=== PATIENT | female | born 1970 | race African-American/Black ===

== ENCOUNTER 2022-02-02 07:58 | Inpatient (IN) | payer OTHER, MEDICAID ==
[~2022-02-02] VITALS: Ht 175.3 cm; Wt 161.0 kg
[2022-02-02] MEDS ORDERED: ACETAMINOPHEN 325MG TABLET PO ONE (08:30)
[2022-02-02] MEDS ORDERED: NAPR-1176 MT (09:49)
[2022-02-02 14:25] LABS: BASOPHILS % 0.6 % (0.0-2.0); EOSINOPHILS % 0.5 % (0.0-5.0); HEMATOCRIT. 42.6 % (36.0-48.0); HEMOGLOBIN. 14.2 g/dL (12.0-16.0); LYMPHOCYTES % 11.9 % (20.0-50.0); MEAN CORPUSCULAR HEMOGLOBIN 29.8 pg (28.0-32.0); MEAN CORPUSCULAR VOLUME 89.5 fL (81.0-99.0); MEAN PLATELET VOLUME 8.2 fl (7.4-10.4); MONOCYTES % 8.8 % (2.0-8.0); NEUTROPHILS % 78.2 % (40.0-76.0); PLATELET 309 x1000/uL (130-400); RED BLOOD CELL COUNT 4.76 mill/uL (4.2-5.4); RED CELL DISTRIBUTION WIDTH 14.1 % (11.6-14.6)
[2022-02-02 16:00] VITALS: BP 159/85
[2022-02-02 16:03] LABS: CHLORIDE 103 mEq/L (98-107)
[2022-02-02] MEDS ORDERED: DOCUSATE SODIUM 100MG CAPSULE PO PRN (16:30)
[2022-02-02] MEDS ORDERED: NA PHOS,M-B/NA PHOS,DI-BA ENEMA 118ML PR PRN (16:30)
[2022-02-02] MEDS ORDERED: IPRATROPIUM/ALBUTEROL 0.5-3(2.5)MG/3ML NEB NEB PRN (16:30)
[2022-02-02] MEDS ORDERED: GUAIFENESIN 200MG/10ML SUGAR FREE UDC PO PRN (16:30)
[2022-02-02] MEDS ORDERED: ONDANSETRON HCL 4MG/2ML INJ IV PRN (16:30)
[2022-02-02] MEDS ORDERED: MAGNESIUM/ALUMINUM HYDROXIDE/SIMETHICONE 30ML UDC PO PRN (16:30)
[2022-02-02] MEDS ORDERED: ACETAMINOPHEN 325MG TABLET PO PRN ×2 (16:30)
[2022-02-02] MEDS ORDERED: NITROGLYCERIN 0.4MG TABLET SL SL PRN (16:30)
[2022-02-02] MEDS ORDERED: CLONIDINE 0.1MG TABLET PO PRN (16:30)
[2022-02-02] MEDS ORDERED: ZOLPIDEM TARTRATE 5MG TABLET PO PRN (16:30)
[2022-02-02] MEDS ORDERED: KETOROLAC 15MG/ML VIAL IV PRN (16:30)
[2022-02-02 17:47] VITALS: BP 159/85
[2022-02-02 17:57] LABS: ETHANOL BLOOD < 10 mg/dL; HDL CHOLESTEROL 72 mg/dL (40-59); LDL CHOLESTEROL 53 mg/dL (5-100); T4 FREE 0.88 ng/dL (0.76-1.46); TOTAL IRON BINDING CAPACITY 335 ug/dL (250-450)
[2022-02-02 18:05] LABS: *AMPHETAMINES SCREEN URINE NEGATIVE (NEGATIVE); *BARBITURATES SCREEN URINE NEGATIVE (NEGATIVE); *BENZODIAZEPINES SCREEN URINE NEGATIVE (NEGATIVE); *COCAINE SCREEN URINE NEGATIVE (NEGATIVE); CANNABINOID URINE SCREEN NEGATIVE (NEGATIVE); METHADONE URINE SCREEN NEGATIVE (NEGATIVE); OPIATES URINE SCREEN NEGATIVE (NEGATIVE); PHENCYCLIDINE URINE SCREEN NEGATIVE (NEGATIVE)
[2022-02-02 18:14] LABS: VITAMIN B12 SERUM 340 pg/mL (211-911)
[2022-02-02 20:00] VITALS: BP 111/55
[2022-02-02] MEDS: ENOXAPARIN 40MG/0.4ML SYR SUBCUT SCH (21:00)
[2022-02-03] VITALS: BP 142/74
[2022-02-03] MEDS: FAMOTIDINE 20MG TABLET PO SCH ×3 (01:08→20:21)
[2022-02-03 04:00] VITALS: BP 124/63
[2022-02-03 06:53] LABS: BASOPHILS % 0.6 % (0.0-2.0); EOSINOPHILS % 0.5 % (0.0-5.0); HEMATOCRIT. 35.4 % (36.0-48.0); HEMOGLOBIN. 12.1 g/dL (12.0-16.0); MEAN CORPUSCULAR HEMOGLOBIN 30.3 pg (28.0-32.0); MEAN CORPUSCULAR VOLUME 88.4 fL (81.0-99.0); MEAN PLATELET VOLUME 7.8 fl (7.4-10.4); MONOCYTES % 13.9 % (2.0-8.0); PLATELET 285 x1000/uL (130-400); RED CELL DISTRIBUTION WIDTH 14.5 % (11.6-14.6)
[2022-02-03 08:00] VITALS: BP 132/65
[2022-02-03 08:44] LABS: CHLORIDE 107 mEq/L (98-107)
[2022-02-03 08:58] LABS: PHOSPHORUS 3.2 mg/dL (2.5-4.9)
[2022-02-03] MEDS: ENOXAPARIN 40MG/0.4ML SYR SUBCUT SCH ×2 (10:35→20:21)
[2022-02-03 12:00] VITALS: BP 127/61
[2022-02-03 15:56] VITALS: BP 128/71
[2022-02-03 20:00] VITALS: BP 136/94
[2022-02-04] VITALS: BP 123/69
[2022-02-04 04:00] VITALS: BP 139/66
[2022-02-04 08:00] VITALS: BP 137/84
[2022-02-04] MEDS: FAMOTIDINE 20MG TABLET PO SCH ×2 (08:55→21:00)
[2022-02-04] MEDS: ENOXAPARIN 40MG/0.4ML SYR SUBCUT SCH ×2 (08:56→21:00)
[2022-02-04 12:00] VITALS: BP 136/73
[2022-02-04 16:00] VITALS: BP 132/69
[2022-02-04 21:41] VITALS: BP 128/63
[2022-02-05] VITALS (7 sets, daily range): BP systolic 133–157; BP diastolic 57–95
[2022-02-05] MEDS: FAMOTIDINE 20MG TABLET PO SCH (10:05)
[2022-02-05] MEDS: ENOXAPARIN 40MG/0.4ML SYR SUBCUT SCH (10:05)
== END 2022-02-05 21:25 | DRG 605 ==
LOC: ER 08:17 → EDBEDREQ 15:21 → EDBEDREQTM 15:21 → ENRESERV 16:11 → 6EST 17:43
PROVIDERS: ADMIT Internal Medicine; ATTEND Internal Medicine
DX: S80.02XA Contusion of left knee, initial encounter (principal); Z68.43 Body mass index [BMI] 50.0-59.9, adult; E66.01 Morbid (severe) obesity due to excess calories; Z20.822 Contact with and (suspected) exposure to COVID-19; S80.01XA Contusion of right knee, initial encounter; X58.XXXA Exposure to other specified factors, initial encounter; Y93.89 Activity, other specified; Y92.89 Other specified places as the place of occurrence of the external cause; Y99.8 Other external cause status
CPT/HCPCS: 36415; 72170; 73562; 73700; 80048; 80053; 80061; 80305; 80320; 82607; 82746; 83036; 83540; 83550; 83735; 84100; 84439; 84443; 85025; 87426; 93970; 97162; 97166; 99285; J1650; J1885; L1830; G0480